=== PATIENT | male | born 1970 | race Caucasian/White ===

== ENCOUNTER 2019-08-26 17:01 | Emergency (ER) | payer OTHER, SELFPAY ==
[2019-08-26 17:17] VITALS: BP 163/107; PULSE 84; RESP 16; TEMP 37.7; O2SAT 96; BMI 33.5
--- NOTE | 2019-08-26 17:41 | ED.ABDPAIN ---
HPI - Abdominal Pain <Tamym Dean PA-C - Last Filed: 08/26/19 21:12> General Chief Complaint: Abdominal Pain Stated Complaint: abdominal pain Time Seen by Provider: 08/26/19 17:40 Source: patient Mode of arrival: Ambulatory Limitations: no limitations History of Present Illness HPI narrative: This 49-year-old male comes to ED secondary to worsening abdominal pain, starting to localized to the right side. He 1st noticed this at 9:00 a.m.. He states that pain seems to come and go in ?waves?, when pain is severe he will have nausea, otherwise he has not had any nausea. He has not had any vomiting. He states that pain does not seem to have any exacerbating or alleviating features and waxes and wanes on its own aside from any food or fluids, which does seem to make pain worse.. He states that he has some chronic low back soreness that is unchanged. He denies any injury. He denies any chest pain or dyspnea. He states he had 2 loose stools earlier this morning, none since. Had a normal bowel movement earlier, no blood. He states that he has had some urinary hesitancy and urgency all day, no blood in the urine. Feels like he needs to go but urinates little. He states he has drank almost nothing today and has not had anything to eat. He denies any known exposures or recent travel. Denies any other new symptoms on systems review Related Data Home Medications Medication Instructions Recorded Confirmed allopurinol sodium [Aloprim] 500 mg PO Q DAY #0 09/09/16 metoprolol tartrate #0 09/09/16 Previous Rx's Medication Instructions Recorded naproxen [Naprosyn] 500 mg PO BID #20 tab 09/09/16 hydrocodone-acetaminophen [[place]] 1 tab PO Q4-6H PRN #8 tab 08/26/19 tamsulosin [Flomax] 0.4 mg PO BEDTIME #5 cap 08/26/19 Allergies Allergy/AdvReac Type Severity Reaction Status Date / Time No Known Allergies Allergy Uncoded 01/23/18 12:57 Review of Systems <Tammy Dean PA-C - Last Filed: 08/26/19 21:12> Review of Systems ROS Unobtainable: All systems reviewed & are unremarkable except as noted in HPI and below Patient History <Tammy Dean PA-C - Last Filed: 08/26/19 21:12> Medical History (Updated 08/26/19 @ 19:43 by Tammy Dean PA-C) Diabetes mellitus, insulin dependent (IDDM), uncontrolled (Chronic) Gout attack (Chronic) HTN (hypertension) (Chronic) Surgical History (Updated 08/26/19 @ 17:59 by Tammy Dean PA-C) Status post knee surgery (Resolved) Social History (Updated 08/26/19 @ 18:00 by Tammy Dean PA-C) Smoking Status: Never smoker alcohol intake frequency: 0-2 drinks per day Substance Use Type: does not use Exam <Tammy Dean PA-C - Last Filed: 08/26/19 21:12> Narrative Exam Narrative: GENERAL APPEARANCE: Patient sitting comfortably, in no distress. HEENT: PERRL, EOMI, no scleral icterus, normal oropharynx NECK: Supple LUNGS: Clear to auscultation bilaterally. HEART: Rate and rhythm regular, normal S1 and S2, no S3 or S4. ABDOMEN: Soft, nondistended, bowel sounds present x 4 quadrants, no masses palpable, no hepatosplenomegaly. mild right upper quadrant tenderness, more tender over the right lower quadrant, no guarding, +rebound. No tenderness throughout the remainder of the abdomen or suprapubic area. No CVAT EXTREMITIES: No edema, no cyanosis DERMATOLOGIC: No jaundice or exanthem NEUROLOGIC: Alert and oriented with normal speech and coordination Initial Vital Signs Initial Vital Signs: Vital Signs Temperature 99.9 F H 08/26/19 17:17 Pulse Rate 84 08/26/19 17:17 Respiratory Rate 16 08/26/19 17:17 Blood Pressure 163/107 H 08/26/19 17:17 Pulse Oximetry 96 08/26/19 17:17 <Kalen Ponce MD - Last Filed: 08/27/19 04:30> Initial Vital Signs Initial Vital Signs: Vital Signs Temperature 99.9 F H 08/26/19 17:17 Pulse Rate 84 08/26/19 17:17 Respiratory Rate 16 08/26/19 17:17 Blood Pressure 163/107 H 08/26/19 17:17 Pulse Oximetry 96 08/26/19 17:17 Course <Tammy Dean PA-C - Last Filed: 08/26/19 21:12> Course Additional Information: Patient had significant improvement in pain with Toradol. He will group billing coordinator Flomax and pain medication and start tonight. He agrees to return if any acutely worsening symptoms, otherwise will follow up with his PCP in the next couple of days to make sure better and no urology referral needed. In addition, reviewed incidental CT findings of bladder wall irregularity and lung nodules and he will follow up with his PCP on this as well. Orders Ordered: Discontinued Medications Sodium Chloride (Normal Saline 0.9%) 1,000 mls @ 1,000 mls/hr IV BOLUS ONE Stop: 08/26/19 18:53 Last Infusion: 08/26/19 19:41 Dose: 0 mls/hr Documented by: Admin: 08/26/19 18:13 Dose: 1,000 mls/hr Documented by: DANICA Ketorolac Tromethamine (Toradol) 15 mg IV NOW ONE Stop: 08/26/19 17:55 Last Admin: 08/26/19 18:13 Dose: 15 mg Documented by: DANICA Ketorolac Tromethamine (Toradol) 15 mg IV NOW ONE Stop: 08/26/19 19:33 Last Admin: 08/26/19 19:51 Dose: 15 mg Documented by: DANICA Pantoprazole Sodium (Protonix) 40 mg IV NOW ONE Stop: 08/26/19 17:55 Last Admin: 08/26/19 18:13 Dose: 40 mg Documented by: DANICA Vital Signs Vital signs: Vital Signs - 8 hr 08/26/19 17:17 08/26/19 18:22 08/26/19 19:27 Temperature 99.9 F H Pulse Rate 84 78 75 Respiratory Rate 16 16 16 Blood Pressure 163/107 H Blood Pressure [Left Arm] 188/108 H 164/98 H Pulse Oximetry 96 97 100 08/26/19 20:17 Temperature 98.4 F Pulse Rate Respiratory Rate Blood Pressure Blood Pressure [Left Arm] Pulse Oximetry <Kalen Ponce MD - Last Filed: 08/27/19 04:30> Orders Ordered: Discontinued Medications Sodium Chloride (Normal Saline 0.9%) 1,000 mls @ 1,000 mls/hr IV BOLUS ONE Stop: 08/26/19 18:53 Last Infusion: 08/26/19 19:41 Dose: 0 mls/hr Documented by: Admin: 08/26/19 18:13 Dose: 1,000 mls/hr Documented by: DANICA Ketorolac Tromethamine (Toradol) 15 mg IV NOW ONE Stop: 08/26/19 17:55 Last Admin: 08/26/19 18:13 Dose: 15 mg Documented by: DANICA Ketorolac Tromethamine (Toradol) 15 mg IV NOW ONE Stop: 08/26/19 19:33 Last Admin: 08/26/19 19:51 Dose: 15 mg Documented by: DANICA Pantoprazole Sodium (Protonix) 40 mg IV NOW ONE Stop: 08/26/19 17:55 Last Admin: 08/26/19 18:13 Dose: 40 mg Documented by: DANICA Vital Signs Vital signs: Vital Signs - 8 hr 08/26/19 17:17 08/26/19 18:22 08/26/19 19:27 Temperature 99.9 F H Pulse Rate 84 78 75 Respiratory Rate 16 16 16 Blood Pressure 163/107 H Blood Pressure [Left Arm] 188/108 H 164/98 H Pulse Oximetry 96 97 100 08/26/19 20:17 Temperature 98.4 F Pulse Rate Respiratory Rate Blood Pressure Blood Pressure [Left Arm] Pulse Oximetry MDM - Abdominal Pain <Tammy Dean PA-C - Last Filed: 08/26/19 21:12> Lab Data Attestation: I reviewed the patient's lab results. Result diagrams: 08/26/19 17:50 08/26/19 17:50 Labs: Lab Results 08/26/19 08/26/19 08/26/19 Range/Units 16:06 17:50 17:50 WBC 7.8 (4.5-11.0) X10^3/uL RBC 4.63 (4.5-5.9) X10^6/uL Hgb 16.0 (13.5-17.5) g/dL Hct 46.4 (41-53) % MCV 100.2 H (80-100) fL MCH 34.5 H (26-34) PG MCHC 34.4 (30-36) % RDW 13.1 (11.6-14.8) % Plt Count 152 (150-400) X10^3/uL Neut % (Auto) 62.8 (50-75) % Lymph % (Auto) 25.8 (25-40) % [place] % (Auto) 8.7 (3-14) % Eos % (Auto) 2.2 (2-4) % Baso % (Auto) 0.5 (0-2) % Neut # (Auto) 4900 (2341-9708) /uL Lymph # (Auto) 2000 (8582-3271) /uL [place] # (Auto) 700 (0-900) /uL Eos # (Auto) 200 (0-450) /uL Baso # (Auto) 0 (0-100) /uL Sodium 139 (137-145) mmol/L Potassium 4.6 (3.4-5.1) mmol/L Chloride 101 (98-107) mmol/L Carbon Dioxide 26 (22-32) mmol/L BUN 19 (9-20) mg/dL Creatinine 1.00 (0.66-1.25) mg/dL Estimated GFR > 60.0 (>60) mL/min BUN/Creatinine Ratio 19.0 (6-22) Glucose 161 H (70-100) mg/dL Calcium 10.1 (8.4-10.2) mg/dL Total Bilirubin 0.9 (0.2-1.3) mg/dL AST 94 H (17-59) IU/L ALT 83 H (<50) IU/L Alkaline Phosphatase 69 (38-126) U/L Total Protein 8.2 (6.3-8.2) g/dL Albumin 4.6 (3.5-5.0) g/dL Globulin 3.6 (1.7-4.1) g/dL Albumin/Globulin Ratio 1.3 (1.0-2.8) Lipase 178 (23-300) U/L Urine RBC 30-100/hpf H (0-5/HPF) Urine WBC 0-1/hpf (0-5/HPF) Ur Squamous Epith Cells 0-1 /hpf (0-5/HPF) Urine Bacteria Occasional (0-1) (None) Ur Culture Indicated? Cult not indicated Point of care testing: Urine Dip Bedside Urine Glucose Negative Bedside Urine Bilirubin - Negative Bedside Urine Ketone - Negative Urine Specific [place] 1.020 Bedside Urine Occult Blood +++ Bedside Urine pH 6.0 Bedside Urine Protein +/- 15 Bedside Urine Urobilinogen - Negative Bedside Urine Nitrite - Negative Bedside Urine Leukocytes - Negative Esterase Imaging Data CT scan - abdomen: Radiologist's impression: Jose Alexandre 49 M 1970 [address] [address] [address] Scan Report Signed Patient: Jose AlexandreMR#: [id number] : 1970Acct:[id number] Age/Sex: 49 / MDate of Service: 08/26/19 Loc: ED Accession Number: [id number] Procedure: CT abdomen pelvis w con Ordering Provider: Tammy Dean P.A-C PROCEDURE: CT ABDOMEN PELVIS W CON INDICATIONS: rlq pain TECHNIQUE: After the administration of intravenous contrast, 5 mm thick sections acquired from the diaphragm to the symphysis. 5 mm coronal and sagittal reformats were acquired. For radiation dose reduction, the following was used: automated exposure control, adjustment of mA and/or kV according to patient size. COMPARISON: None. FINDINGS: Image quality: Excellent. ABDOMEN: Lung bases: Lung bases are clear of acute opacities. 6 mm and 3 mm nodules noted in the right middle lobe. 4 mm and 2 mm nodules noted in the left lower lobe. Heart size is normal. Solid organs: Liver is normal in size and enhancement. Diffuse fat infiltration of liver. Gallbladder is contracted, but within normal limits.. Biliary system is non dilated. Pancreas enhances normally. Spleen is normal in size and enhancement. No adrenal nodules. 3 mm stone at the right UVJ causing mild right-sided hydronephrosis. Peritoneum and bowel: Bowel loops demonstrate normal wall thickness and caliber. A few scattered colonic diverticuli are noted without evidence of diverticulitis. No free fluid or air. Appendix is normal. Nodes and vessels: No retroperitoneal or mesenteric adenopathy by size criteria. Aorta and inferior vena cava are normal in size. Scattered atherosclerotic calcifications involving the abdominal and pelvic vasculature. Miscellaneous: Small fat-containing umbilical hernia. PELVIS: Genitourinary: Bladder wall is diffusely thickened and slightly irregular. Miscellaneous: No inguinal hernias or adenopathy. Bones: No suspicious bony lesions. No vertebral body compression fractures. Spine degenerative disc disease and facet arthropathy. IMPRESSION: 1. No appendicitis. 2. 3 mm right UVJ stone causing mild right-sided hydronephrosis. 3. Diffuse urinary bladder wall thickening and irregularity which could be due to chronic inflammation versus infiltrative neoplasm. Please correlate with urinalysis data. 4. Hepatic steatosis. 5. Colonic diverticulosis without evidence of diverticulitis. Dictated by: Rubina Gongora MD, PhD on 08/26/2019 at 19:21 Approved by: Rubina Gongora MD, PhD on 08/26/2019 at 19:26 <Kalen Ponce MD - Last Filed: 08/27/19 04:30> Lab Data Labs: Lab Results 08/26/19 08/26/19 08/26/19 Range/Units 16:06 17:50 17:50 WBC 7.8 (4.5-11.0) X10^3/uL RBC 4.63 (4.5-5.9) X10^6/uL Hgb 16.0 (13.5-17.5) g/dL Hct 46.4 (41-53) % MCV 100.2 H (80-100) fL MCH 34.5 H (26-34) PG MCHC 34.4 (30-36) % RDW 13.1 (11.6-14.8) % Plt Count 152 (150-400) X10^3/uL Neut % (Auto) 62.8 (50-75) % Lymph % (Auto) 25.8 (25-40) % [place] % (Auto) 8.7 (3-14) % Eos % (Auto) 2.2 (2-4) % Baso % (Auto) 0.5 (0-2) % Neut # (Auto) 4900 (8421-5189) /uL Lymph # (Auto) 2000 (0624-1544) /uL [place] # (Auto) 700 (0-900) /uL Eos # (Auto) 200 (0-450) /uL Baso # (Auto) 0 (0-100) /uL Sodium 139 (137-145) mmol/L Potassium 4.6 (3.4-5.1) mmol/L Chloride 101 (98-107) mmol/L Carbon Dioxide 26 (22-32) mmol/L BUN 19 (9-20) mg/dL Creatinine 1.00 (0.66-1.25) mg/dL Estimated GFR > 60.0 (>60) mL/min BUN/Creatinine Ratio 19.0 (6-22) Glucose 161 H (70-100) mg/dL Calcium 10.1 (8.4-10.2) mg/dL Total Bilirubin 0.9 (0.2-1.3) mg/dL AST 94 H (17-59) IU/L ALT 83 H (<50) IU/L Alkaline Phosphatase 69 (38-126) U/L Total Protein 8.2 (6.3-8.2) g/dL Albumin 4.6 (3.5-5.0) g/dL Globulin 3.6 (1.7-4.1) g/dL Albumin/Globulin Ratio 1.3 (1.0-2.8) Lipase 178 (23-300) U/L Urine RBC 30-100/hpf H (0-5/HPF) Urine WBC 0-1/hpf (0-5/HPF) Ur Squamous Epith Cells 0-1 /hpf (0-5/HPF) Urine Bacteria Occasional (0-1) (None) Ur Culture Indicated? Cult not indicated Point of care testing: Urine Dip Bedside Urine Glucose Negative Bedside Urine Bilirubin - Negative Bedside Urine Ketone - Negative Urine Specific [place] 1.020 Bedside Urine Occult Blood +++ Bedside Urine pH 6.0 Bedside Urine Protein +/- 15 Bedside Urine Urobilinogen - Negative Bedside Urine Nitrite - Negative Bedside Urine Leukocytes - Negative Esterase Discharge Plan Departure Patient Disposition: Home Clinical Impression: Calculus of kidney Discharge Date/Time: 08/26/19 20:18 Instructions: DI for Kidney Stones Activity Restrictions/Additional Instructions: Your scan today showed a kidney stone that is in an area that likely explains your pain. It is small enough that it should pass on its own. As we talked about, you should return if you have any acutely worsening symptoms, or new symptoms such as vomiting, fever, or inability to urinate. You can group billing coordinator the hydrocodone/acetaminophen as well as Flomax at the pharmacy on your way home. Please take the Flomax once daily until you pass the stone. Take the hydrocodone/acetaminophen as needed, but remember this can make you sleepy and not to drive. Starting in the morning, you can also take 2 Aleve, twice daily to help with pain and inflammation, which is the equivalent of a prescription. Please call your PCP office in the morning and schedule a follow-up appointment in the next couple of days, as you may need a referral for Urology if you're not feeling better. As we talked about, some coincidental findings on your CT scan were small lung nodules and bladder inflammation, which may also need follow-up testing. You can discuss this further when you follow-up. Prescriptions: New tamsulosin [Flomax] 0.4 mg capsule 0.4 mg PO BEDTIME Qty: 5 RF: 0 hydrocodone-acetaminophen [[place]] 5-325 mg tablet 1 tab PO Q4-6H PRN (Reason: pain) Qty: 8 RF: 0 No Action metoprolol tartrate 50 mg tablet Qty: 0 RF: 0 allopurinol sodium [Aloprim] 500 MG recon soln 500 mg PO Q DAY Qty: 0 RF: 0 naproxen [Naprosyn] 500 MG tablet 500 mg PO BID Qty: 20 RF: 0 Referrals: Timothy Rodriguez MD [Primary Care Provider] -
--- NOTE | 2019-08-26 17:54 | DI.CT.S_ITS ---
PROCEDURE: CT ABDOMEN PELVIS W CON INDICATIONS: rlq pain TECHNIQUE: After the administration of intravenous contrast, 5 mm thick sections acquired from the diaphragm to the symphysis. 5 mm coronal and sagittal reformats were acquired. For radiation dose reduction, the following was used: automated exposure control, adjustment of mA and/or kV according to patient size. COMPARISON: None. FINDINGS: Image quality: Excellent. ABDOMEN: Lung bases: Lung bases are clear of acute opacities. 6 mm and 3 mm nodules noted in the right middle lobe. 4 mm and 2 mm nodules noted in the left lower lobe. Heart size is normal. Solid organs: Liver is normal in size and enhancement. Diffuse fat infiltration of liver. Gallbladder is contracted, but within normal limits.. Biliary system is non dilated. Pancreas enhances normally. Spleen is normal in size and enhancement. No adrenal nodules. 3 mm stone at the right UVJ causing mild right-sided hydronephrosis. Peritoneum and bowel: Bowel loops demonstrate normal wall thickness and caliber. A few scattered colonic diverticuli are noted without evidence of diverticulitis. No free fluid or air. Appendix is normal. Nodes and vessels: No retroperitoneal or mesenteric adenopathy by size criteria. Aorta and inferior vena cava are normal in size. Scattered atherosclerotic calcifications involving the abdominal and pelvic vasculature. Miscellaneous: Small fat-containing umbilical hernia. PELVIS: Genitourinary: Bladder wall is diffusely thickened and slightly irregular. Miscellaneous: No inguinal hernias or adenopathy. Bones: No suspicious bony lesions. No vertebral body compression fractures. Spine degenerative disc disease and facet arthropathy. IMPRESSION: 1. No appendicitis. 2. 3 mm right UVJ stone causing mild right-sided hydronephrosis. 3. Diffuse urinary bladder wall thickening and irregularity which could be due to chronic inflammation versus infiltrative neoplasm. Please correlate with urinalysis data. 4. Hepatic steatosis. 5. Colonic diverticulosis without evidence of diverticulitis. Dictated by: Rubina Gongora MD, PhD on 08/26/2019 at 19:21 Approved by: Rubina Gongora MD, PhD on 08/26/2019 at 19:26
[2019-08-26 18:04] LABS: Add Manual Diff / Slide Review NO; Basophils Absolute Auto 0 /uL (0-100); Basophils Percent Auto 0.5 % (0-2); Eosinophils Absolute Auto 200 /uL (0-450); Eosinophils Percent Auto 2.2 % (2-4); Hematocrit 46.4 % (41-53); Lymphocytes Absolute Auto 2000 /uL (1100-4500); Lymphocytes Percent Auto 25.8 % (25-40); Mean Corpuscular HGB Conc 34.4 % (30-36); Mean Corpuscular Hemoglobin 34.5 PG (26-34); Mean Corpuscular Volume 100.2 fL (80-100); Monocytes Absolute Auto 700 /uL (0-900); Monocytes Percent Auto 8.7 % (3-14); Neutrophils Absolute Auto 4900 /uL (1500-7000); Neutrophils Percent Auto 62.8 % (50-75); Platelet Count 152 X10^3/uL (150-400); Red Blood Cell Count 4.63 X10^6/uL (4.5-5.9); Red Cell Distribution Width 13.1 % (11.6-14.8); White Blood Cell Count 7.8 X10^3/uL (4.5-11.0)
[2019-08-26] MEDS: PANTOPRAZOLE 40 MG VIAL IV (18:13)
[2019-08-26] MEDS: SODIUM CHLORIDE 0.9% 1,000 ML 1000 ML IV (18:13)
[2019-08-26] MEDS: KETOROLAC 60 MG/2 ML VIAL 15 MG IV ×2 (18:13→19:51)
[2019-08-26 18:14] LABS: Alanine Aminotransferase 83 IU/L (<50); Albumin 4.6 g/dL (3.5-5.0); Albumin Globulin Ratio 1.3 (1.0-2.8); Alkaline Phosphatase 69 U/L (38-126); Aspartate Aminotransferase 94 IU/L (17-59); Bilirubin Total 0.9 mg/dL (0.2-1.3); Blood Urea Nitrogen 19 mg/dL (9-20); Calcium 10.1 mg/dL (8.4-10.2); Carbon Dioxide 26 mmol/L (22-32); Chloride 101 mmol/L (98-107); Estimated Glomerular Filt Rate > 60.0 mL/min (>60); Globulin 3.6 g/dL (1.7-4.1); Glucose 161 mg/dL (70-100); HEMOLYSIS 40 (0-50); Lipase 178 U/L (23-300); Potassium 4.6 mmol/L (3.4-5.1); Sodium 139 mmol/L (137-145); Total Protein 8.2 g/dL (6.3-8.2)
[2019-08-26 18:22] VITALS: BP 188/108; PULSE 78; RESP 16; O2SAT 97
[2019-08-26 18:55] LABS: Bacteria Urine Occasional (0-1); Culture Indicated Urine Cult Not Indicated; RBC Urine 30-100/HPF (0-5/HPF); Squamous Epithelial Cell Urine 0-1 /HPF (0-5/HPF); WBC Urine 0-1/HPF (0-5/HPF)
[2019-08-26 19:27] VITALS: BP 164/98; PULSE 75; RESP 16; O2SAT 100
[2019-08-26 20:17] VITALS: TEMP 36.9
== END 2019-08-26 20:18 | disposition home or self-care (01) ==
PROVIDERS: Emergency Provider Internal Medicine; Family Provider Family Medicine; PCP Family Medicine
DX: N13.2 Hydronephrosis with renal and ureteral calculous obstruction (principal); R11.0 Nausea
CPT/HCPCS: 36415; 74177; 80053; 81003; 81015; 83690; 85025; 96361; 96374; 96375; 96376; 99283; 99284; C9113; J1885; Q9967

== ENCOUNTER → 2020-02-11 10:50 | Outpatient (CLI) | payer OTHER, SELFPAY ==
[2020-02-11 11:34] LABS: BUN Creatinine Ratio 22.6 (6-22); Blood Urea Nitrogen 24 mg/dL (9-20); Estimated Glomerular Filt Rate > 60.0 mL/min (>60)
--- NOTE | 2020-02-11 11:39 | DI.CT.S_ITS ---
PROCEDURE: CT CHEST W CON INDICATIONS: Other nonspecific abnormal finding of lung field TECHNIQUE: After the administration of intravenous contrast, 5 mm thick sections acquired from the pulmonary apices to the posterior costophrenic angles. 1 mm axial lung, 5 mm thick coronal and sagittal reformats and 7 mm axial MIP were acquired. For radiation dose reduction, the following was used: automated exposure control, adjustment of mA and/or kV according to patient size. COMPARISON: [facility], CT, CT ABDOMEN PELVIS W CON, 08/26/2019, 19:02. FINDINGS: Image quality: Excellent. Lungs and pleura: No acute air space opacities. Several scattered 3-6 mm nodules are again seen within the lungs bilaterally, without change from the initial CT that identified the structures 08/26/19. On the right at the mid chest level right middle lobe a 6 mm nodule is seen, series 3 image 152. The more inferiorly near the junction of the medial and lateral segments of the right middle lobe a second 6 mm nodule is present, image 197. Immediately adjacent is a smaller 3 mm nodule laterally, image 199 and also on the same image a right lower lobe peripheral nodule measures 3 x 4 mm, also previously present. On the left a 3 mm nodule is seen in the lingular segment image 219. Slightly above the second same size nodule is present image 201. No pleural effusions or pneumothorax. Central and peripheral airways are patent and normal in caliber. Mediastinum: Heart size is normal. No pericardial effusion. No mediastinal or hilar adenopathy by size criteria. Thoracic aorta and central pulmonary arteries are normal in size. Esophagus is normal in caliber. No hiatal hernia. Bones and chest wall: No suspicious bony lesions. No vertebral body compression fractures. No axillary or supraclavicular adenopathy by size criteria. Thyroid gland appears normal where well seen. Abdomen: Visualized upper abdominal solid organs appear normal. Upper abdominal bowel loops are normal in caliber. IMPRESSION: Bilateral small pulmonary nodules as discussed above, ranging from 3-6 mm, without change from 08/26/19. Small nodules of these dimensions generally do not require additional followup given stability over time but if the patient has a higher risk factor such as long smoking history followup in 12 months from now could be obtained. Granulomatous etiology is the likely cause. Dictated by: Dimitry Hensley M.D. on 02/11/2020 at 12:09 Approved by: Dimitry Hensley M.D. on 02/11/2020 at 12:16
== END ==
PROVIDERS: Family Provider Family Medicine; PCP Family Medicine; Referring Provider Family Medicine; Visit Provider Family Medicine
DX: R91.8 Other nonspecific abnormal finding of lung field (principal)
CPT/HCPCS: 36415; 71260; 82565; 84520; Q9967

== ENCOUNTER → 2021-07-27 10:54 | Outpatient (CLI) | payer OTHER, SELFPAY ==
[2021-07-27 12:47] LABS: COVID19 -Nasal RAPID Negative (Negative)
== END ==
PROVIDERS: PCP Family Medicine; Visit Provider Nurse Practitioner
DX: Z20.822 Contact with and (suspected) exposure to COVID-19 (principal); Z01.812 Encounter for preprocedural laboratory examination
CPT/HCPCS: 87635

== ENCOUNTER 2021-07-29 12:33 | Day surgery (SDC) | payer OTHER, SELFPAY ==
--- NOTE | 2021-07-29 | PATH_ITS ---
[facility] Accession Number: [id number] . 01 Material submitted: . colon - ASCENDING COLON POLYP . 02 Diagnosis: Ascending Colon Polyp, Biopsy: Tubular adenoma. Additional step sections examined. MRV 08/02/2021 1321 Local . 02 Electronically signed: . Boni Arora MD, PhD, Pathologist NPI- [id number] . 01 Gross description: . ASCENDING COLON POLYP: Received in formalin is 1 fragment(s) of garcia, soft tissue measuring 0.4 x 0.2 x 0.1 cm submitted entirely in 1 cassette(s) /ART 07/30/2021 0410 Local . 02 Pathologist provided ICD-10: D12.2 . 02 CPT . 546720 Performed at: 01 [facility] [address] [place] [address], [place], [place] [id number] MD Mahesh De Dios MD Phone: [phone] Performed at: 02 [facility] [address] [place], [place] [id number] MD Lorie Orta MD Phone: [phone]
--- NOTE | 2021-07-29 12:37 | PM.HP.1 ---
History of Present Illness History of Present Illness Chief complaint: SCREENING COLONOSCOPY Narrative: 51 Years Old Male seen today for consideration of a screening colonoscopy. There have been no lower GI symptoms suggesting disease such as change in bowel habits, bleeding, abdominal pain or anemia. There's been no family history of colon cancer or colon polyps. Overall health issues have been stable, including no major cardiac events for at least 6 weeks. Past Medical History: Albuminuria Bursitis of shoulder, left Diabetes mellitus type II PSA ELEVATION HYPERLIPIDEMIA HYPERTENSION Lung nodule GOUT, CHRONIC DEGENERATIVE JOINT DISEASE SLEEP APNEA, OBSTRUCTIVE Past Surgical History: Left knee arthroscopy with partial lateral menisectomy (10/18/04) Family History: Father: HTN Mother: arthritis Social History: Marital Status: Single Children: none Occupation: construction Household Members: Education: 14 3-4 drinks of vodka/night Patient History Medical History (Updated 09/10/19 @ 00:00 by ) Diabetes mellitus, insulin dependent (IDDM), uncontrolled Gout attack HTN (hypertension) Surgical History (Updated 08/26/19 @ 17:59 by Tammy Dean PA-C) Status post knee surgery Family & Social History Tobacco & Substance use: Smoking Status Never smoker alcohol intake frequency 0-2 drinks per day Substance Use Type does not use Meds Home Medications and Allergies Home Medications Medication Instructions Recorded Confirmed Type allopurinol sodium 500 mg 500 mg PO Q DAY #0 09/09/16 07/29/21 History intravenous solution (Aloprim) metoprolol tartrate 50 mg tablet 100 mg PO BID #0 09/09/16 07/29/21 History atorvastatin 40 mg tablet 40 mg PO DAILY 07/29/21 07/29/21 History empagliflozin 25 mg tablet 25 mg PO DAILY 07/29/21 07/29/21 History (Jardiance) lisinopril 20 mg tablet 20 mg PO DAILY 07/29/21 07/29/21 History metformin 1,000 mg tablet 1,000 mg PO BID 07/29/21 07/29/21 History Allergies Allergy/AdvReac Type Severity Reaction Status Date / Time No Known Drug Allergies Allergy Verified 07/29/21 13:17 Review of Systems Review of Systems Narrative: See HPI. Exam Narrative Exam Narrative: General: well developed, well nourished, in no acute distress, Head: normocephalic and atraumatic, Lungs: normal respiratory effort, clear bilaterally to auscultation, no wheezes rales or rhonchi. Heart: normal rate and regular rhythm, no murmurs, rubs, gallops, or clicks, Abdomen: abdomen soft and non-tender without masses, organomegaly, or abdominal wall hernias, bowel sounds positive. Skin: intact without suspicious lesions or rashes, Psych: alert and cooperative; normal mood and affect; normal attention span and concentration; cognition, remote and recent memory appear to be intact, Assessment & Plan Assessment & Plan narrative: 1. Screening for colon cancer Plan for colonoscopy. The nature and character of the procedure as well as anticipated results were discussed. The possibility of not completing the procedure was also discussed. Possible complications including aspiration pneumonia, bleeding, perforation and reaction to medications either for sedation or preparation and missed lesions were discussed. Questions were answered and proceeding to the colonoscopy was elected. Informed consent signed. I sincerely appreciate the referral allowing me to participate in this patient's care. Please contact me with any questions or concerns. Time Spent With Patient Critical Care time: I spent a total of [] minutes of critical care time on this patient's care today; this time is exclusive of procedural time.
--- NOTE | 2021-07-29 12:38 | PM.OP.COLON ---
Operative Date/Time/Diagnoses Date of procedure: 07/29/21 Procedure Notes SCOAP/Timeout: 1:46 p.m. Procedure in detail: ENDOSCOPIST: Darshana Torres MD Sedation RN: Gaston Burton RN Sedation start time: 1:46 p.m. Sedation end time: 2:15 p.m. PROCEDURE: Colonoscopy with biopsy INDICATIONS: 1. Screening for colon cancer MEDICATION: Levsin 0.125 mg sublingual, incremental doses of Versed and fentanyl until appropriate level sedation achieved. ASA CLASS: 2 CECAL WITHDRAWAL TIME: 13 minutes COMPLICATIONS: None. EXTENT OF PROCEDURE: Cecum. QUALITY OF PREP: Good with portions of liquid stool. PROCEDURE: Prior to insertion of the colonoscope, a digital rectal examination was accomplished with circumferential palpation of the distal rectal mucosa without significant findings being noted. The high-definition colonoscope was passed into the rectum in the usual fashion and advanced over to the cecum without difficulty. The ileocecal valve, appendiceal stoma, and medial wall all could be inspected and no abnormalities were seen. ASCENDING COLON: As the colonoscope was withdrawn, care was taken to expose and inspect the haustral folds and a 2 mm polyp was seen and removed with cold biopsy forceps. HEPATIC FLEXURE: Normal, no polyps, diverticula or other abnormalities. TRANSVERSE COLON: Normal, no polyps, diverticula or other abnormalities. DESCENDING COLON: Minor diverticulosis, otherwise normal, no polyps, or other abnormalities. SIGMOID COLON: Minor diverticulosis, otherwise normal, no polyps, or other abnormalities. RECTUM: Normal. J maneuver was produced. There was no significant perianal disease. The J maneuver was broken. The remainder of the rectum was inspected and there was no external hemorrhoid disease. The scope was withdrawn. IMPRESSION: 1. Ascending polyp x1, 2 mm, removed with cold biopsy forceps 2. Minor diverticulosis, left-sided PLAN: 1. Follow-up in clinic status post pathology results. The possibility of a missed lesion including a malignancy has been discussed with the patient previously. Potential alarm symptoms have been discussed and should be reported immediately.
[2021-07-29] MEDS: HYOSCYAMINE 0.125 MG TABLET PO (13:08)
[2021-07-29] MEDS: LACTATED RINGERS 1,000 ML 200 ML IV (13:09)
[2021-07-29 13:10] VITALS: BP 129/94; PULSE 93; RESP 16; TEMP 36.2; O2SAT 95; BMI 33.5
[2021-07-29] MEDS: MIDAZOLAM 5 MG/5 ML VIAL IV (14:16)
[2021-07-29] MEDS: fentaNYL 250 MCG/5 ML INJ IV (14:17)
[2021-07-29 14:22] VITALS: BP 117/86; PULSE 92; RESP 16; TEMP 36.4; O2SAT 98
[2021-07-29 14:25] VITALS: BP 116/88; PULSE 84; RESP 14; O2SAT 98
[2021-07-29 14:30] VITALS: BP 115/78; PULSE 85; RESP 15; O2SAT 98
[2021-07-29 14:35] VITALS: BP 115/85; PULSE 80; RESP 13; TEMP 36.4; O2SAT 98
[2021-07-29 14:45] VITALS: BP 136/98; PULSE 82; RESP 14; TEMP 36.5; O2SAT 98
== END 2021-07-29 14:52 | disposition home or self-care (01) ==
PROVIDERS: PCP Family Medicine; Referring Provider Student in an Organized Health Care Education/Training Program; Visit Provider Student in an Organized Health Care Education/Training Program
PROC: 0DJD8ZZ Inspection of Lower Intestinal Tract, Via Natural or Artificial Opening Endoscopic (ICD-10-PCS; CPT 45378; principal; 2021-07-29 13:45)
DX: Z12.11 Encounter for screening for malignant neoplasm of colon (principal); K57.30 Diverticulosis of large intestine without perforation or abscess without bleeding; E11.9 Type 2 diabetes mellitus without complications; I10 Essential (primary) hypertension; E78.5 Hyperlipidemia, unspecified; G47.33 Obstructive sleep apnea (adult) (pediatric); D12.2 Benign neoplasm of ascending colon
CPT/HCPCS: 45380; J2250; J3010

== ENCOUNTER 2022-01-23 15:07 | Outpatient (RCR) | payer OTHER, SELFPAY ==
--- NOTE | 2022-01-23 16:06 | ST.OPIE ---
Visit Care Team Role Provider Type Paco Garza MD Attending Provider Physician Family Provider Primary Care Provider Referring Provider Specialty: Family Practice Address: [facility] [place], [address] Email: [email or web address] Speech-Language Pathology Initial Evaluation ECOTHERAPIST Clinical Swallow Evaluation Start: 01/23/22 15:29 Freq: Status: Active Protocol: Document 01/23/22 15:29 YAMILA (Rec: 01/23/22 16:06 YAMILA [id number]) Clinical Swallow Evaluation Session Time Visit Start Time 15:30 Visit Stop Time 15:50 Total Visit Minutes 20 Visit Information Visit Number Initial Eval Plan of Care Dates 01/23/22 - 03/19/22 Insurance Information Arelis Guardado Referral Referring Provider Dr. Paco Garza Reason for Referral Dysphagia Setting Assessment Location Outpatient Care Visit Type Note Type Initial evaluation Next Note Type Next Note Type Treatment Note Patient Information Identification Type Name,ID Card History Pt is a 51-yr-old male who complains of sticking sensation in esophagus, often with pain, during oral consumption of liquids and solids. He feels as if food/ liquid is piling up until it feels it might back up to his throat. This limits the amount of food he is able to consume and has taken the lucero out of eating. Liquid wash does not dilute the bolus; the pt must wait until it clears before eating more. This has been going on for ~1 yr. The pt denied oral and pharygeal dysphagia symptoms, other than occasional episodes of breathing in saliva while talking, for example. He stated that he can breathe without difficulty during esophageal episodes and, in fact, deep breaths often are helpful. The pt further manages symptoms by consuming small bites, chewing excessively, and taking breaks throughout a meal. Subjective Observations The pt arrived on time and provided case history supplemental to medical records. Reported by Patient Comment Sticking of solids and liquids in esophagus Current Diet Regular,Thin liquids Baseline Feeding Method Independent in self-feeding Objective Assessment Mental Status Alert,Responsive,Cooperative Comment Oral Peripheral Exam was not administered d/t nature of pt's complaints and denial of oral phase dysphagia symptoms. Facial features were symmetrical. Observations of oral cavity during trials indicated oral motor skills and dentition are WNL. Food and Liquid Trials Position During Assessment Upright (90 degrees) Liquids Trialed Thin Solids Trialed Regular Oral Impairment Within normal limits Pharyngeal Impairment Within normal limits Comment No overt symptoms of oral or pharyngeal phase dysphagia were observed with limited trials. The pt reported initial sensation of sticking in his esophagus at mid chest level after consuming 2 saltine crackers. Trials were discontinued for pt comfort. Feedback and assessment results were provided to the pt, as well as recommendation for referral to GI for esophageal evaluation. Pt was agreeable to this. Will keep his chart open until after that consultation in case follow-up is beneficial. Pt agreed to call this clinic after GI assessment and either schedule follow-up or request discharge. Findings Swallowing Function Other dysphagia Swallowing Function Comments Esophageal dysphagia is suspected. Recommend referral to GI for assessment. Impact on Safety and Functioning Risk for inadequate nutrition/ hydration Recommendations Swallowing Treatment No Recommended Solids Regular Recommended Liquids Thin Other Recommendations Consume small meals throughout the day. Small bites, chew well and take breaks as needed to allow for esophageal clearance. Alternate solids and liquids if helpful. Avoid starchy foods that expand post swallow. Consider taking pills in a carrier such as applesauce or splitting. Consult with MD/Pharmacist prior to splitting meds. Take medication prior to other food /liquid to reduce risk of stasis and irritation of esophageal lining. Referrals Recommended Referrals Gastroenterology Education Patient/Caregiver Education Described results of evaluation,Patient expressed understanding of evaluation, Patient expressed agreement with goals & treatment plans, Patient expressed understanding of safety precautions,Patient expressed understanding of feeding recommendations Goals Short-term Goals Follow up as needed after GI consultation and findings.
--- NOTE | 2022-02-14 17:50 | ST.IPDYTX ---
Visit Care Team Role Provider Type Paco Garza MD Attending Provider Physician Family Provider Primary Care Provider Referring Provider Specialty: Family Practice Address: [address], [place], [address] Email: [email or web address] [employer] Dysphagia Treatment [employer] Dysphagia Treatment Start: 01/23/22 15:29 Freq: Status: Active Protocol: Document 02/14/22 17:47 YAMILA (Rec: 02/14/22 17:49 YAMILA [id number]) Dysphagia Treatment Visit Information Plan of Care Dates 01/23/22 - 03/19/22 Insurance Information [facility]INS7 Setting Assessment Location Outpatient Care Visit Type Note Type Discharge Summary Patient Information Subjective Observations Per conversation at initial eval, the pt agreed to call after being seen by GI and/or ENT if no further ST was deemed necessary. Today he called and cancelled all appts . Treatment Plan Follow Up Plan Discharge from skilled intervention.
== END 2022-02-15 10:16 ==
LOC: SP 15:07
PROVIDERS: Family Provider Family Medicine; PCP Family Medicine; Referring Provider Family Medicine; Visit Provider Family Medicine
DX: R13.10 Dysphagia, unspecified (principal)
CPT/HCPCS: 92610